=== PATIENT | female | born 1995 | race Caucasian/White ===

== ENCOUNTER 2023-02-12 13:39 | Outpatient (CLI) | payer OTHER ==
--- NOTE | 2023-02-12 14:26 | XRAY Report ---
PROCEDURE: Foot 2 View LT INDICATIONS: SPRAIN OF INTERPHALANGEAL JOINT OF LEFT LESSER TOE TECHNIQUE: 2 views of the foot were acquired. COMPARISON: None. FINDINGS: Bones: No fractures or dislocations. No suspicious bony lesions. Small calcaneal spur. Stable ali gnment. Soft tissues: No suspicious soft tissue calcifications or masses. IMPRESSION: No acute bony abnormality. Reviewed by: Jovanna Blackman MD on 02/12/2023 2:24 PM PDT Approved by: Jovanna Blackman MD on 02/12/2023 2:24 PM PDT Station ID: [id number]
== END 2023-02-12 13:40 | disposition home or self-care (01) ==
LOC: DI 13:39
PROVIDERS: ATTEND Physician Assistant Medical
DX: S93.515A Sprain of interphalangeal joint of left lesser toe(s), initial encounter (principal)